=== PATIENT | female | born 1965 | race Caucasian/White ===

== ENCOUNTER 2022-05-02 13:06 | Outpatient (CLI) | payer OTHER | END 2022-05-02 13:07 | disposition home or self-care (01) | LOC: SCSRAD 13:06 | PROVIDERS: ATTEND Family Medicine | DX: M79.651 Pain in right thigh (principal); M79.661 Pain in right lower leg; M25.561 Pain in right knee; M16.11 Unilateral primary osteoarthritis, right hip ==